=== PATIENT | male | born 1940 | race Caucasian/White ===

== ENCOUNTER 2018-02-28 07:51 | Emergency (ER) | payer MEDICARE, OTHER ==
[~2018-02-28] VITALS: Ht 177.8 cm; Wt 90.9 kg
[2018-02-28 07:51] VITALS: TEMP 97.8
[~2018-02-28 07:51] MED LIST: ASPIRIN 32325 MG/TAB PO; BACTRIM DS 8001 TAB PO; CEPHALEXIN500 M1 PO; CORDARONE200 MG PO; HCTZ; IRON65 M1 PO; LASIX40 MG PO; LISINOPRIL/HCTZ1 TA1 PO; LISINOPRIL/HYDR1 TAB PO; LOPRESSOR 225 MG/TAB PO; POTASSIUM CH2 MEQ/ML PO; PRAVASTATIN40 MG PO; VITAMIN C500 MG PO
[2018-02-28] MEDS ORDERED: REQUIP0.25 MG PO (08:04)
[2018-02-28] MEDS ORDERED: NAMENDA 10MG TA10 MG PO (08:04)
[2018-02-28] MEDS ORDERED: LEXAPRO 10MG10 MG PO (08:04)
[2018-02-28] MEDS ORDERED: PRINZIDE 12.5 M1 TA1 PO (08:04)
[2018-02-28] MEDS ORDERED: K-TAB10 PO (08:04)
[2018-02-28] MEDS ORDERED: LASIX 40MG TABL40 MG PO (08:04)
[2018-02-28] MEDS ORDERED: ARICEPT10 MG PO (08:05)
[2018-02-28] MEDS ORDERED: ZEBETA 5MG5 MG PO (08:14)
[2018-02-28] MEDS ORDERED: ZESTRIL 20MG TA20 MG PO (08:16)
[2018-02-28] MEDS ORDERED: VITAMIN C500 MG PO (08:17)
[2018-02-28 08:30] LABS: BASO # 0.1 (0.0-0.2); BASO % 1.3 % (0.0-2.0); EOS # 0.4 (0.0-0.7); EOS % 5.2 % (0-4.0); GRAN # 4.2 (1.4-6.5); HEMATOCRIT 43.6 % (42.0-52.0); HEMOGLOBIN 15.7 g/dl (13.5-18.0); LYMPH # 1.4 (1.2-3.4); LYMPH % 20.1 % (20.0-51.0); MEAN CELL VOLUME 90 fl (80.0-100.0); MEAN CORPUSCULAR HEMOGLOBIN 32 pg (27.0-31.0); MEAN CORPUSCULAR HGB CONC 36 g/dl (33.0-37.0); MEAN PLATELET VOLUME 10.4 fl (7.4-10.4); MONO # 0.7 (0.1-0.6); MONO % 10.1 % (1.7-9.3); PLATELET COUNT 203 K/mm3 (130-400); RED BLOOD COUNT 4.85 M/mm3 (4.20-5.60); REDCELL DISTRIBUTION WIDTH-CV 12.4 % (11.5-14.5)
[2018-02-28 08:36] LABS: ALANINE AMINOTRANSFERASE 23 U/L (21-72); ALBUMIN 4.2 gm/dL (3.5-5.0); ALKALINE PHOSPHATASE 105 U/L (50-136); ANION GAP 4 mmol/L (7-16); AST,SGOT 34 U/L (15-37); BILIRUBIN,TOTAL 1.7 mg/dL (0.0-1.0); BLOOD UREA NITROGEN 14 mg/dL (9-20); CALCIUM 9.6 mg/dL (8.4-10.2); CARBON DIOXIDE 31 mmol/L (22-30); CHLORIDE 105 mmol/L (98-107); CREATININE, serum 0.92 mg/dL (0.66-1.25); GLUCOSE 89 mg/dL (74-106); POTASSIUM 3.8 mmol/L (3.4-5.0); SODIUM 141 mmol/L (137-145); TOTAL PROTEIN 7.1 gm/dL (6.4-8.2)
[2018-02-28 08:38] LABS: PROTHROMBIN TIME 11.7 SECONDS (9.7-12.8)
[2018-02-28 08:41] LABS: PARTIAL THROMBOPLASTIN TIME 33.7 SECONDS (26.0-37.0)
[2018-02-28 09:07] LABS: TROPONIN-I < 0.012 ng/mL (0.000-0.034)
[2018-02-28 10:39] LABS: COLLECTION METHOD CLEAN CATCH
[2018-02-28 10:53] LABS: MUCOUS Present /lpf; PH 7 (5-8); SQUAMOUS EPITHELIAL None Seen /hpf; URINE APPEARANCE Clear; URINE BACTERIA None Seen /hpf; URINE BILIRUBIN Negative (NEGATIVE); URINE BLOOD Negative (NEGATIVE); URINE COLOR Yellow; URINE GLUCOSE Negative (NEGATIVE); URINE KETONE Negative (NEGATIVE); URINE LEUKOCYTE ESTERASE Negative (NEGATIVE); URINE NITRATE Negative (NEGATIVE); URINE PROTEIN(semi-quant) Negative (NEGATIVE); URINE RBC 0-2 /hpf; URINE UROBILINOGEN >=4.0 mg/dL (NEGATIVE)
[2018-02-28 11:44] VITALS: BP 161/79; PULSE 51
== END 2018-02-28 11:44 | disposition home or self-care (01) ==
LOC: COL.ER 07:51
PROVIDERS: Emergency Medicine
DX: R41.82 Altered mental status, unspecified (principal); G20 Parkinson's disease; F03.90 Unspecified dementia, unspecified severity, without behavioral disturbance, psychotic disturbance, mood disturbance, and anxiety; Z79.82 Long term (current) use of aspirin

== ENCOUNTER 2018-05-17 12:19 | Emergency (ER) | payer MEDICARE, OTHER ==
[~2018-05-17 12:19] MED LIST changes: +ARICEPT10 MG PO; +K-TAB10 PO; +LASIX 40MG TABL40 MG PO; +LEXAPRO 10MG10 MG PO; +NAMENDA 10MG TA10 MG PO; +PRINZIDE 12.5 M1 TA1 PO; +REQUIP0.25 MG PO; +ZEBETA 5MG5 MG PO; +ZESTRIL 20MG TA20 MG PO
[2018-05-17 12:23] VITALS: TEMP 97.1
[2018-05-17] MEDS ORDERED: NORVASC 5MG5 MG/TAB PO (14:11)
[2018-05-17 14:27] LABS: BASO # 0.1 (0.0-0.2); EOS # 0.2 (0.0-0.7); EOS % 2.7 % (0-4.0); GRAN # 6.3 (1.4-6.5); GRAN % 77.4 % (42.2-75.2); HEMATOCRIT 42.8 % (42.0-52.0); HEMOGLOBIN 15.1 g/dl (13.5-18.0); LYMPH # 0.8 (1.2-3.4); LYMPH % 9.4 % (20.0-51.0); MEAN CELL VOLUME 90 fl (80.0-100.0); MEAN CORPUSCULAR HEMOGLOBIN 32 pg (27.0-31.0); MEAN CORPUSCULAR HGB CONC 35 g/dl (33.0-37.0); MEAN PLATELET VOLUME 9.9 fl (7.4-10.4); MONO # 0.7 (0.1-0.6); MONO % 9.1 % (1.7-9.3); PLATELET COUNT 199 K/mm3 (130-400); RED BLOOD COUNT 4.78 M/mm3 (4.20-5.60); REDCELL DISTRIBUTION WIDTH-CV 12.6 % (11.5-14.5)
[2018-05-17 14:28] LABS: PROTHROMBIN TIME 11.6 SECONDS (9.7-12.8)
[2018-05-17 14:32] LABS: BILIRUBIN,TOTAL 1.6 mg/dL (0.0-1.0); CALCIUM 9.1 mg/dL (8.4-10.2); CREATININE, serum 0.86 mg/dL (0.66-1.25); POTASSIUM 3.5 mmol/L (3.4-5.0); TOTAL PROTEIN 6.9 gm/dL (6.4-8.2)
[2018-05-17 15:23] VITALS: BP 183/87; PULSE 59
== END 2018-05-17 15:10 | disposition short-term general hospital (02) ==
LOC: COL.ER 12:19
PROVIDERS: Nurse Practitioner
DX: S06.5X0A Traumatic subdural hemorrhage without loss of consciousness, initial encounter (principal); M79.89 Other specified soft tissue disorders; I10 Essential (primary) hypertension; G20 Parkinson's disease; F02.80 Dementia in other diseases classified elsewhere, unspecified severity, without behavioral disturbance, psychotic disturbance, mood disturbance, and anxiety; Z79.82 Long term (current) use of aspirin; Z86.79 Personal history of other diseases of the circulatory system; Z87.891 Personal history of nicotine dependence; W01.10XA Fall on same level from slipping, tripping and stumbling with subsequent striking against unspecified object, initial encounter; Y92.481 Parking lot as the place of occurrence of the external cause
CPT/HCPCS: Q4021